=== PATIENT | male | born 1940 | race Caucasian/White ===

== ENCOUNTER 2021-11-26 07:28 | Emergency (ER) | payer OTHER ==
[~2021-11-26] VITALS: Ht 170.2 cm; Wt 99.8 kg
[2021-11-26 08:12] LABS: BASOPHILS ABSOLUTE AUTO 0.07 K/mm3 (0.00-0.23); BASOPHILS PERCENT AUTO 0 % (0-2); EOSINOPHILS ABSOLUTE AUTO 0.08 K/mm3 (0.00-0.68); EOSINOPHILS PERCENT AUTO 0 % (0-6); Hematocrit 30.5 % (37.0-53.0); Hemoglobin 9.4 g/dL (13.5-17.5); IMMATURE GRAN ABSOLUTE AUTO 0.57 K/mm3 (0.00-0.10); IMMATURE GRAN PERCENT AUTO 3 % (0-1); LYMPHOCYTES ABSOLUTE AUTO 1.25 K/mm3 (0.84-5.20); LYMPHOCYTES PERCENT AUTO 6 % (21-46); MONOCYTES ABSOLUTE AUTO 3.01 K/mm3 (0.16-1.47); MONOCYTES PERCENT AUTO 16 % (4-13); Mean Corpuscular HGB 27.7 pg (26.0-34.0); Mean Corpuscular HGB Conc 30.8 g/dL (31.5-36.5); Mean Corpuscular Volume 90 fL (80-100); Mean Platelet Volume 10.5 fL (9.1-12.4); NEUTROPHILS ABSOLUTE AUTO 14.45 K/mm3 (1.96-9.15); NEUTROPHILS PERCENT AUTO 74 % (41-73); Platelet Count 457 K/mm3 (150-400); RDW Coefficient Variation 17.8 % (11.7-14.2); RDW Standard Deviation 57.9 fL (35.1-46.3); Red Blood Cell Count 3.39 M/mm3 (4.30-5.90); White Blood Cell Count 19.43 K/mm3 (4.00-11.30)
[2021-11-26] MEDS ORDERED: ATEN25 PO (08:35)
[2021-11-26] MEDS ORDERED: FURO40 PO (08:35)
[2021-11-26] MEDS ORDERED: ATOR40TA PO (08:35)
[2021-11-26] MEDS ORDERED: GABA300 PO (08:35)
[2021-11-26] MEDS ORDERED: LANTUS SOL100 UNIT/1 SC (08:36)
[2021-11-26 08:41] LABS: International Normalized Ratio 1.03; Prothrombin Time Results 10.8 Sec (9.7-11.5)
[2021-11-26 08:44] LABS: Alanine Aminotransfer (ALT/SGP 105 U/L (12-78); Albumin, Blood 2.2 g/dL (3.4-5.0); Albumin/Globulin Ratio 0.6 (0.8-1.8); Alk Phos 142 U/L (50-136); Anion Gap 8 mmol/L (6-16); Aspartate Aminotrans (AST/SGOT 46 U/L (12-37); Bilirubin, Total 1.1 mg/dL (0.1-1.0); Blood Urea Nitrogen 15 mg/dL (8-24); CO2, Blood 24 mmol/L (21-32); Calcium, Blood 8.5 mg/dL (8.5-10.1); Chloride, Blood 104 mmol/L (98-108); Creatinine, Blood 0.83 mg/dL (0.60-1.20); Globulin, Blood 3.7 g/dL (2.2-4.0); Glomerular Filtration Rate >60 (60-); Glucose, Blood 201 mg/dL (70-99); Magnesium, Blood 1.9 mg/dL (1.6-2.4); Potassium, Blood 4.5 mmol/L (3.5-5.5); Sodium, Blood 136 mmol/L (136-145); Total Protein, Blood 5.9 g/dL (6.4-8.2)
[2021-11-26 10:34] LABS: Source, Urine Clean Catch
[2021-11-26 10:46] LABS: Appearance, Urine Clear (Clear); Bilirubin, Urine Neg (Neg); Blood, Urine Neg (Neg); Color, Urine Yellow (P-Yellow); Glucose Qualitative, Urine Neg (Neg); Ketones, Urine Neg (Neg); Leukocyte Esterase, Urine Neg (Neg); Nitrite, Urine Neg (Neg); Protein, Urine 1+ (Neg); Urobilinogen, Urine 2+ (Normal)
[2021-11-26] MEDS ORDERED: ATOR80 PO (13:25)
== END 2021-11-26 14:18 | disposition home or self-care (01) ==
LOC: ER 07:28
PROVIDERS: Student in an Organized Health Care Education/Training Program
DX: G45.9 Transient cerebral ischemic attack, unspecified (principal); R07.2 Precordial pain; R22.0 Localized swelling, mass and lump, head; D72.829 Elevated white blood cell count, unspecified; E11.40 Type 2 diabetes mellitus with diabetic neuropathy, unspecified; E78.5 Hyperlipidemia, unspecified; I10 Essential (primary) hypertension; Z79.4 Long term (current) use of insulin; Z79.899 Other long term (current) drug therapy
CPT/HCPCS: 70450; 70551; 71046; 71275; 80053; 83735; 84484; 85025; 85610; 85730; 93005; 93010; 99285-25; Q9967

== ENCOUNTER 2024-08-02 07:06 | Day surgery (SDC) | payer OTHER ==
[~2024-08-02] VITALS: Ht 170.2 cm; Wt 96.5 kg
[~2024-08-02 07:06] MED LIST: AMLO5; ATEN25 PO; ATOR40TA PO; ATOR80 PO; Aspir 8181 MG PO; Balanced Salt Epinephrine Irrigation Solution 500 mL IR SCH; CLOP75 PO; Crestor20 MG; DOCU100; ERGO400; ERGO50000; FISH OIL GUMMI1 EAC1; FURO40 PO; GABA300 PO; GABA600; INSULIN GL100 UNIT/3 SC; K-Dur10 MEQ PO; LANTUS SOL100 UNIT/1 SC; LISI20 PO; Lasix40 MG PO; Lidocaine HCl/Pf 1% 5 ML VIAL ONE; Lidocaine HCl/Pf 1% 5 ML VIAL XX SCH; Lisinopril-Hct1 EAC4 PO; METF500; METF500 PO; METO25; MULVITA; Moxifloxacin HCL 0.5 MG/0.1 ML 0.4MLSYR RIGHTEYE SCH; NIFE30ER PO; Neurontin 300300 MG PO; OZEMPIC0.25 MG/02; PANT40 PO; PHENYLEPHRINE\\TROPICAMIDE\\TETRACAINE OPHTHALMIC DILATING SOLN RIGHTEYE PRN; Povidone-Iodine 450 DROP/30 ML Solution RIGHTEYE SCH; Tenormin25 MG PO; Triamcinolone Inj Susp 40 MG / ML 1ML Vial INJ SCH; Triamcinolone Inj Susp 40 MG / ML 1ML Vial ONE
[2024-08-02] MEDS ORDERED: VITAMIN D (07:44)
--- NOTE | 2024-08-02 07:56 | NUR ---
08/02/24 0756 Lisa Jeffers [id number] PLEDGET [phone]
[2024-08-02] MEDS ORDERED: Midazolam HCl 1MG / ML 2ML Vial ONE (08:06)
[2024-08-02] MEDS ORDERED: Tetracaine HCl 0.5% Opth Soln 15 ml XX ONE (08:23)
[2024-08-02 08:49] VITALS: BP 111/87
--- NOTE | 2024-08-02 09:11 | NUR ---
08/02/24 0911 SANDRA HANNA WE WERE ABLE TO MAKE CONTACT WITH PT SISTER.
== END 2024-08-02 09:05 | disposition home or self-care (01) ==
LOC: ORSCSDS 07:06
PROVIDERS: Ophthalmology
PROC: 08RJ3JZ Replacement of Right Lens with Synthetic Substitute, Percutaneous Approach (ICD-10-PCS; principal; 2024-08-02 08:30)
DX: H25.811 Combined forms of age-related cataract, right eye (principal); Z96.1 Presence of intraocular lens; I12.9 Hypertensive chronic kidney disease with stage 1 through stage 4 chronic kidney disease, or unspecified chronic kidney disease; E11.22 Type 2 diabetes mellitus with diabetic chronic kidney disease; N18.9 Chronic kidney disease, unspecified; Z79.899 Other long term (current) drug therapy
CPT/HCPCS: 82947; J2003; J2250; J3301; V2632